=== PATIENT | female | born 1975 | race Caucasian/White ===

== ENCOUNTER 2017-03-03 10:47 | Emergency (ER) | payer BC ==
[2017-03-03] MEDS ORDERED: SODIUM CHLORIDE 0.9% 1,000 ML IV STA (11:20)
--- NOTE | 2017-03-03 11:22 | ED ---
General Adult HPI - General Chief complaint: Abdominal Pain Stated complaint: poss kidney stone, poss bowel obstruction Time Seen by Provider: 03/03/17 11:14 Source: patient, RN notes reviewed Mode of arrival: ambulatory Limitations: no limitations - History of Present Illness Initial comments: Patient 41-year-old female who presents emergency room today with a chief complaint of right-sided flank pain over the last week. She does admit this been following up with family doctor. She states it did x-rays and thought that it could be a kidney stone versus a impaction. She does admit that she tried some laxatives with little relief the symptoms and family doctor sent her here to emergency room for further evaluation. Patient states pain comes and goes located to the right flank. Denies any radiation. States it is cramping and sharp at times currently rates it a 5/10. Denies anything that seems to make it better or worse. Patient denies any recent fever, chills, shortness of breath, chest pain, nausea or vomiting, numbness or tingling, dysuria or hematuria, constipation or diarrhea, headaches or visual changes, or any other complaints. - Related Data Home Medications Medication Instructions Recorded Confirmed Folic Acid 0.8 mg PO DAILY 03/03/17 03/03/17 Allergies Allergy/AdvReac Type Severity Reaction Status Date / Time amoxicillin AdvReac Rash/Hives Verified 03/03/17 11:08 Review of Systems ROS Statement: Those systems with pertinent positive or pertinent negative responses have been documented in the HPI. ROS Other: All systems not noted in ROS Statement are negative. Past Medical History Additional Past Medical History / Comment(s): ischemic colitis History of Any Multi-Drug Resistant Organisms: None Reported Past Surgical History: Tubal Ligation Past Psychological History: No Psychological Hx Reported Smoking Status: Former smoker Past Alcohol Use History: None Reported Past Drug Use History: None Reported General Exam - General Exam Comments Initial Comments: General: The patient is awake and alert, in no distress, and does not appear acutely ill. Eye: Pupils are equal, round and reactive to light, extra-ocular movements are intact. No nystagmus. There is normal conjunctiva bilaterally. No signs of icterus. Ears, nose, mouth and throat: There are moist mucous membranes and no oral lesions. Neck: The neck is supple, there is no tenderness or JVD. Cardiovascular: There is a regular rate and rhythm. No murmur, rub or gallop is appreciated. Respiratory: Lungs are clear to auscultation, respirations are non-labored, breath sounds are equal. No wheezes, stridor, rales, or rhonchi. Gastrointestinal: Normal appearance of the abdomen. Normal bowel sounds. Soft on palpation. Patient has no tenderness in the abdomen. Does have some mild right CVA tenderness. No rebound. No guarding. Musculoskeletal: Normal ROM, no tenderness. Strength 5/5. Sensation intact. Pulses equal bilaterally 2+. Neurological: A&O x 3. CN II-XII intact, There are no obvious motor or sensory deficits. Coordination appears grossly intact. Speech is normal. Skin: Skin is warm and dry and no rashes or lesions are noted. Psychiatric: Cooperative, appropriate mood & affect, normal judgment. Limitations: no limitations Course Vital Signs 03/03/17 10:56 Temperature 98.1 F Pulse Rate 75 Respiratory 20 Rate Blood Pressure 125/85 O2 Sat by Pulse 99 Oximetry Medical Decision Making - Medical Decision Making CT the abdomen and pelvis reviewed and shows 1. Abdomen, all and iliac arterial structures appear normal. 2 minimal facet arthropathy in the lower lumbar spine. No other acute abnormalities are seen. Patient's labs reviewed. Case discussed with attending physician Dr. Haley. At this time patient's resting comfortably. Has not needed any pain medication here in the emergency room. Abdomen soft nontender. Options were discussed about enema here in the emergency room for her bouts of constipation. She is declined. She states she would like to try laxative. Will be given magnesium citrate and discharged home. - Lab Data Result diagrams: 03/03/17 11:50 03/03/17 11:50 Lab Results 03/03/17 03/03/17 03/03/17 Range/Units 11:50 11:50 11:50 WBC 4.1 (3.8-10.6) k/uL RBC 4.13 (3.80-5.40) m/uL Hgb 11.5 (11.4-16.0) gm/dL Hct 34.9 (34.0-46.0) % MCV 84.4 (80.0-100.0) fL MCH 27.9 (25.0-35.0) pg MCHC 33.1 (31.0-37.0) g/dL RDW 14.6 (11.5-15.5) % Plt Count 231 (150-450) k/uL Neutrophils % 51 % Lymphocytes % 32 % Monocytes % 9 % Eosinophils % 4 % Basophils % 1 % Neutrophils # 2.1 (1.3-7.7) k/uL Lymphocytes # 1.3 (1.0-4.8) k/uL Monocytes # 0.4 (0-1.0) k/uL Eosinophils # 0.2 (0-0.7) k/uL Basophils # 0.0 (0-0.2) k/uL Sodium 140 (137-145) mmol/L Potassium 3.9 (3.5-5.1) mmol/L Chloride 106 (98-107) mmol/L Carbon Dioxide 23 (22-30) mmol/L Anion Gap 11 mmol/L BUN 10 (7-17) mg/dL Creatinine 0.73 (0.52-1.04) mg/dL Est GFR (MDRD) Af Amer >60 (>60 ml/min/1.73 sqM) Est GFR (MDRD) Non-Af >60 (>60 ml/min/1.73 sqM) Glucose 89 (74-99) mg/dL Calcium 9.0 (8.4-10.2) mg/dL Total Bilirubin 0.7 (0.2-1.3) mg/dL AST 17 (14-36) U/L ALT 23 (9-52) U/L Alkaline Phosphatase 62 (38-126) U/L Total Protein 7.2 (6.3-8.2) g/dL Albumin 4.2 (3.5-5.0) g/dL Amylase 47 (30-110) U/L Lipase 75 (23-300) U/L Urine Color Urine Appearance (Clear) Urine pH (5.0-8.0) Ur Specific [place] (1.001-1.035) Urine Protein (Negative) Urine Glucose (UA) (Negative) Urine Ketones (Negative) Urine Blood (Negative) Urine Nitrite (Negative) Urine Bilirubin (Negative) Urine Urobilinogen (<2.0) mg/dL Ur Leukocyte Esterase (Negative) Urine RBC (0-5) /hpf Urine WBC (0-5) /hpf Ur Squamous Epith Cells (0-4) /hpf Urine Bacteria (None) /hpf Urine Mucus (None) /hpf Urine HCG, Qual Not Detected (Not Detectd) 03/03/17 Range/Units 11:50 WBC (3.8-10.6) k/uL RBC (3.80-5.40) m/uL Hgb (11.4-16.0) gm/dL Hct (34.0-46.0) % MCV (80.0-100.0) fL MCH (25.0-35.0) pg MCHC (31.0-37.0) g/dL RDW (11.5-15.5) % Plt Count (150-450) k/uL Neutrophils % % Lymphocytes % % Monocytes % % Eosinophils % % Basophils % % Neutrophils # (1.3-7.7) k/uL Lymphocytes # (1.0-4.8) k/uL Monocytes # (0-1.0) k/uL Eosinophils # (0-0.7) k/uL Basophils # (0-0.2) k/uL Sodium (137-145) mmol/L Potassium (3.5-5.1) mmol/L Chloride (98-107) mmol/L Carbon Dioxide (22-30) mmol/L Anion Gap mmol/L BUN (7-17) mg/dL Creatinine (0.52-1.04) mg/dL Est GFR (MDRD) Af Amer (>60 ml/min/1.73 sqM) Est GFR (MDRD) Non-Af (>60 ml/min/1.73 sqM) Glucose (74-99) mg/dL Calcium (8.4-10.2) mg/dL Total Bilirubin (0.2-1.3) mg/dL AST (14-36) U/L ALT (9-52) U/L Alkaline Phosphatase (38-126) U/L Total Protein (6.3-8.2) g/dL Albumin (3.5-5.0) g/dL Amylase (30-110) U/L Lipase (23-300) U/L Urine Color Light Yellow Urine Appearance Cloudy H (Clear) Urine pH 6.5 (5.0-8.0) Ur Specific [place] 1.007 (1.001-1.035) Urine Protein Negative (Negative) Urine Glucose (UA) Negative (Negative) Urine Ketones Negative (Negative) Urine Blood Trace H (Negative) Urine Nitrite Negative (Negative) Urine Bilirubin Negative (Negative) Urine Urobilinogen <2.0 (<2.0) mg/dL Ur Leukocyte Esterase Negative (Negative) Urine RBC 1 (0-5) /hpf Urine WBC 2 (0-5) /hpf Ur Squamous Epith Cells 6 H (0-4) /hpf Urine Bacteria Moderate H (None) /hpf Urine Mucus Few H (None) /hpf Urine HCG, Qual (Not Detectd) Disposition Clinical Impression: Abdominal pain Disposition: HOME SELF-CARE Condition: Good Instructions: Abdominal Pain (ED) Additional Instructions: Please use medication as discussed. Please follow-up with family doctor in the next 2 days of symptoms have not improved. Please return to emergency room if the symptoms increase or worsen or for any other concerns. Referrals: Franky Doran MD [Primary Care Provider] - 1-2 days Time of Disposition: 14:00
[2017-03-03 12:06] LABS: Basophils % (A) 1 %; CH 27.2; CHCM 32.3; Eosinophils # (A) 0.2 k/uL (0-0.7); Eosinophils % (A) 4 %; HCT 34.9 % (34.0-46.0); HDW 2.66; HGB 11.5 gm/dL (11.4-16.0); Luc # (Auto) 0.17; Luc % (Auto) 4; Lymphocytes # (A) 1.3 k/uL (1.0-4.8); Lymphocytes % (A) 32 %; MCH 27.9 pg (25.0-35.0); MCHC 33.1 g/dL (31.0-37.0); MCV 84.4 fL (80.0-100.0); Mean Platelet Volume 7.5; Monocytes # (A) 0.4 k/uL (0-1.0); Monocytes % (A) 9 %; Neutrophils # (A) 2.1 k/uL (1.3-7.7); Neutrophils % (A) 51 %; RBC 4.13 m/uL (3.80-5.40); RDW 14.6 % (11.5-15.5); WBC 4.1 k/uL (3.8-10.6); WBC (Perox) 3.93
[2017-03-03 12:08] LABS: Appearance,Urine Cloudy (Clear); Bacteria,Urine Moderate /hpf; Bilirubin,Urine Negative (Negative); Glucose,Urine (UA) Negative (Negative); Ketones,Urine Negative (Negative); Leukocyte Esterase,Urine Negative (Negative); Mucus,Urine Few /hpf; Nitrite,Urine Negative (Negative); PH, Urine 6.5 (5.0-8.0); Particle Count 10007; Protein,Urine Negative (Negative); RBC,Urine 1 /hpf (0-5); Specific Gravity,Urine 1.007 (1.001-1.035); Squamous Epithelial Cell,Urine 6 /hpf (0-4); UA Billing (MACRO vs. MICRO) MICRO; Urobilinogen,Urine <2.0 mg/dL (<2.0); WBC,Urine 2 /hpf (0-5)
[2017-03-03 12:10] LABS: ALT 23 U/L (9-52); AST 17 U/L (14-36); Alkaline Phosphatase 62 U/L (38-126); Amylase 47 U/L (30-110); Anion Gap 11 mmol/L; Blood Urea Nitrogen 10 mg/dL (7-17); Carbon Dioxide 23 mmol/L (22-30); Chloride 106 mmol/L (98-107); Glucose 89 mg/dL (74-99); Non-African American GFR(MDRD) >60 (>60 ml/min/1.73 sqM); Potassium 3.9 mmol/L (3.5-5.1); Sodium 140 mmol/L (137-145); Total Bilirubin 0.7 mg/dL (0.2-1.3); Total Protein 7.2 g/dL (6.3-8.2)
--- NOTE | 2017-03-03 12:12 | XR ---
EXAMINATION TYPE: XR KUB , 2 VIEWS DATE OF EXAM ORDERED: 03/03/2017 HISTORY: pain. COMPARISON: None. FINDINGS: The abdominal gas pattern is normal. There is no evidence of obstruction or free air. Ther e is a solitary phlebolith in the left hemipelvis. The lung bases appear clear. No definite renal purnima culi are seen. IMPRESSION: NO ACUTE INTRA-ABDOMINAL ABNORMALITY.
[2017-03-03] MEDS ORDERED: RX INFO: IV CONTRAST WAS GIVEN 1 EACH MISC MISCELLANE PRN (12:17)
--- NOTE | 2017-03-03 13:13 | CT ---
EXAMINATION TYPE: CT angio abdomen pelvis DATE OF EXAM: 03/03/2017 REFERENCE: NONE HISTORY: Pain HISTORY: Rt sided pain, history of ischemic colitis REFERENCE: NONE CT DLP: 455.7 mGy Automated exposure control for dose reduction was used. TECHNIQUE: Helical acquisition through the abdomen and pelvis was obtained following the oral ingesti on of without Oral Contrast and following intravenous administration of 100 mL of Omnipaque 350. The data was reformatted in axial, coronal and sagittal projections. FINDINGS: Visualized portions of the lungs are clear. There is no pleural or pericardial fluid. The heart is not enlarged. Within the abdomen, the liver, spleen and gallbladder appear normal. Both adrenal glands appear normal. Both kidneys demonstrate function and appear morphologically richi l. The pancreas is unremarkable. There is no significant retroperitoneal, iliac or inguinal adenopathy. The bladder is unremarkable. The uterus appears normal. The ovaries are not clearly defined. There is no significant diverticular change and there is no radiographic evidence of diverticulitis. The appendix is not visualized. Small bowel loops appear normal. No free fluid and no free air is seen.. The aorta is normal in caliber. There is no significant atheromatous calcification. The celiac, SMA, renal arteries and KYE vessels are patent. Both the common iliac as well as the inte rnal/external iliac arteries are patent. The superficial femoral artery is patent proximally. There is minimal facet arthropathy in the lower lumbar spine. No bony destructive lesion is seen. IMPRESSION: 1. ABDOMINAL AND ILIAC ARTERIAL STRUCTURES APPEAR NORMAL. 2. MINIMAL FACET ARTHROPATHY IN THE LOWER LUMBAR SPINE.
[2017-03-03] MEDS ORDERED: MAGNESIUM CITRATE 296 ML BOTTLE PO ONE (13:41)
[2017-03-03 13:51] VITALS: BP 102/59; PULSE 69; RESP 18; TEMP 97.8
== END 2017-03-03 14:19 | disposition home or self-care (01) ==
LOC: EC 10:47
DX: K59.00 Constipation, unspecified (principal); R10.9 Unspecified abdominal pain; Z87.891 Personal history of nicotine dependence; Z79.899 Other long term (current) drug therapy; Z88.0 Allergy status to penicillin; Z87.19 Personal history of other diseases of the digestive system
CPT/HCPCS: 99284; 96360; 96361; 36415; 80053; 82150; 83605; 83690; 85025; 81001; 81025; 74000; 74174; Q9967

== ENCOUNTER 2017-04-07 07:58 | Day surgery (SDC) | payer BC ==
[2017-04-05 15:19] VITALS: BMI 23.4
[~2017-04-07 07:58] MED LIST: LACTATED RINGERS 1,000 ML IV SCH
[2017-04-07 09:13] VITALS: RESP 16; TEMP 98.1
[2017-04-07] MEDS ORDERED: LIDOCAINE 1% 20 ML VIAL (10MG/ML) FOR IV START INTRADERMA ONE (09:19)
[2017-04-07] MEDS ORDERED: LIDOCAINE 1% INJ 10MG/ML (20 ML MDV) ONE (09:46)
[2017-04-07] MEDS ORDERED: PROPOFOL 10 MG/ML 20 ML VIAL IV ONE (09:46)
--- NOTE | 2017-04-07 10:08 | P.PCN ---
Date of Procedure: 04/07/17 Preoperative Diagnosis: Postoperative Diagnosis: Procedure(s) Performed: BRIEF HISTORY: Patient is a 42-year-old pleasant white female, scheduled for an elective colonoscopy as a part of evaluation of right lower quadrant abdominal pain for the last several months duration. She also has associated constipation and has been on MiraLAX as well as Colace with no significant help. Recently went to the emergency room with severe pain and had a CT of the abdomen and pelvis done that was unremarkable. Lyla episode of ischemic colitis in 2017. The cause of the ongoing symptoms she is scheduled for colonoscopy to evaluate further. PROCEDURE PERFORMED: Colonoscopy. PREOPERATIVE DIAGNOSIS: Right lower quadrant abdominal pain and chronic constipation. IV sedation per Anesthesia. PROCEDURE: After informed consent was obtained, the patient, was brought into the endoscopy unit. IV sedation was administered by Anesthesia under continuous monitoring. Digital rectal examination was normal. Initially the Olympus CF- 160 flexible video colonoscope was then inserted in the rectum, gradually advanced into the cecum without any difficulty. Careful examination was performed as the scope was gradually being withdrawn. Ileocecal valve and the appendiceal orifice were visualized and appeared normal. Terminal ileum appeared normal. Prep was excellent. Mucosa of the cecum, ascending colon, transverse colon, descending colon, sigmoid colon, and rectum appeared normal. Retroflexion was performed in the rectum and no lesions were seen. The patient tolerated the procedure well. IMPRESSION: Normal-appearing colon from rectum to cecum with no evidence of colitis or colorectal neoplasia. RECOMMENDATIONS: Findings of this examination were discussed with the patient as well as a family. She was advised to increase the MiraLAX 1 scoop twice daily and continue with high-fiber diet. She can have a repeat colonoscopy in 10 years. Implants: Indications for Procedure: Operative Findings: Description of Procedure:
[2017-04-07 10:28] VITALS: BP 116/69; PULSE 76
== END 2017-04-07 10:57 | disposition home or self-care (01) ==
LOC: ORWHC2ENDO 07:58
PROVIDERS: ATTEND Internal Medicine Gastroenterology
DX: R10.31 Right lower quadrant pain (principal); K59.00 Constipation, unspecified; Z87.19 Personal history of other diseases of the digestive system; Z87.891 Personal history of nicotine dependence; Z91.09 Other allergy status, other than to drugs and biological substances
CPT/HCPCS: 81025; 45378; J2001; J2704

== ENCOUNTER 2018-10-19 05:47 | Day surgery (SDC) | payer BC ==
[2018-10-16 16:09] VITALS: BMI 25.7
--- NOTE | 2018-10-18 07:08 | P.HPOB ---
History of Present Illness H&P Date: 10/18/18 Chief Complaint: Menorrhagia This patient is a pleasant 43-year-old 4 para 3 female who presented to my office with complaints of menorrhagia requesting treatment. Patient's evaluations included a ultrasound which was normal. Patient I did discuss options for treatment and she has requested an endometrial ablation for this. Patient has had a tubal ligation for control. Review of Systems Genitourinary: Reports as per HPI, Reports menorrhagia Menstruation: Reports period heavy Past Medical History Additional Past Medical History / Comment(s): PAST HX ischemic colitis, History of Any Multi-Drug Resistant Organisms: None Reported Past Surgical History: Tubal Ligation Additional Past Surgical History / Comment(s): COLONOSCOPY Past Anesthesia/Blood Transfusion Reactions: No Reported Reaction Additional Past Anesthesia/Blood Transfusion Reaction / Comment(s): no hx blood transfusion Past Psychological History: No Psychological Hx Reported Smoking Status: Former smoker Past Alcohol Use History: None Reported Past Drug Use History: None Reported - Past Family History Mother Family Medical History: Cancer Additional Family Medical History / Comment(s): breast Medications and Allergies Home Medications Medication Instructions Recorded Confirmed Type No Known Home Medications 04/05/17 10/16/18 History Allergies Allergy/AdvReac Type Severity Reaction Status Date / Time amoxicillin AdvReac Rash/Hives Verified 10/17/18 08:40 Exam - OBG Physical Exam Abdomen: bowel sounds normal, no diffuse tenderness, no bruit present, no guarding noted, no hepatomegaly, no splenomegaly, no mass Vulva: both: normal Vagina: normal moisture, no discharge Cervix: no lesion, no discharge Uterus: normal size, normal contour Results Transvaginal ultrasound on September 26 showed a normal-appearing endometrium and ovaries. Assessment and Plan Assessment: This is a pleasant 43-year-old 4 para 3 female with long-standing menorrhagia requesting NovaSure endometrial ablation for treatment. Plan is hysteroscopy, D&C, NovaSure endometrial ablation. Patient and I have discussed this surgery and risks including risks of infection, bleeding, possible uterine perforation, and/or thermal injury. All the patient's questions have been answered and a written consent is obtained. (1) Menorrhagia Status: Chronic Code(s): N92.0 - EXCESSIVE AND FREQUENT MENSTRUATION WITH REGULAR CYCLE SNOMED Code(s): 753542911
[~2018-10-19 05:47] MED LIST changes: -LACTATED RINGERS 1,000 ML IV SCH; +Pre Op ABX Message 1 EACH MISC MISCELLANE ONE
[2018-10-19] MEDS ORDERED: LIDOCAINE 1% 20 ML VIAL (10MG/ML) FOR IV START INTRADERMA ONE (06:45)
[2018-10-19] MEDS ORDERED: ONDANSETRON 4 MG/2 ML VIAL IVP ONE (06:47)
[2018-10-19] MEDS ORDERED: DEXAMETHASONE SOD PHOSPHATE 10 MG/ML 1 ML VIAL IV ONE (06:48)
[2018-10-19] MEDS ORDERED: fentaNYL (PF) 50 MCG/ML 2 ML AMP ONE (06:55)
[2018-10-19] MEDS ORDERED: KETOROLAC 30 MG/ML 1 ML VIAL ONE (06:55)
[2018-10-19] MEDS ORDERED: MIDAZOLAM 2 MG/2 ML VIAL ONE (06:55)
[2018-10-19] MEDS ORDERED: PROPOFOL 10 MG/ML 20 ML VIAL IV ONE (06:55)
[2018-10-19] MEDS ORDERED: LACTATED RINGERS 1,000 ML IV ONE (06:57)
[2018-10-19 07:45] VITALS: TEMP 980
[2018-10-19] MEDS ORDERED: HYDROmorphone 1 MG/ML 1 ML SYRINGE IVP ONE ×2 (07:48)
--- NOTE | 2018-10-19 08:04 | P.OP ---
Date of Procedure: 10/19/18 Preoperative Diagnosis: Menorrhagia Postoperative Diagnosis: Same Procedure(s) Performed: #1: Hysteroscopy. #2: Dilation and curettage. #3: NovaSure endometrial ablation Anesthesia: MAC Surgeon: Amarjit Simms Estimated Blood Loss (ml): 10 Urine output (ml): 15 Pathology: other (Uterine curettings) Condition: stable Disposition: PACU Indications for Procedure: Please see dictated H&P for intimate details of this patient's admission. Brief summary this pleasant 43-year-old multipara first patient who is admitted for treatment of menorrhagia. Patient requested an endometrial ablation. Patient I have discussed the surgery and risks including risks of infection, bleeding, possible uterine perforation, and/or thermal injury. All the patient' s questions are answered and a written consent is obtained. Operative Findings: This patient had a normal-appearing endometrial cavity with a length of 6 cm and a width of 4.8 cm. There was no evidence of any polyps fibroids or abnormal growths. Description of Procedure: This patient is taken to the operating room where she is laid in the supine position. She subsequent undergoes general mask anesthesia without incident. An adequate level of anesthesia was placed in dorsal lithotomy position. She has a vaginal perineal prep and drape. Examination under anesthesia shows a mid position uterus. A weighted speculum was placed in the posterior vagina. The anterior lip of the cervix was grabbed with an Allis clamp. The uterus is then sounded to approximately 9-1/2 cm. Gentle dilation is then done of the endocervix to allow the hysteroscope into the uterine cavity. Using saline solution hysteroscopy is performed and the uterine cavity is found to be normal in appearance with a length of 6 cm and a width of 4.8 cm. The hysteroscope was removed. Gentle dilation is done to allow a curette easily and the uterine cavity and gentle 4 quadrant curettage is done for adequate sampling. NovaSure device is then opened appears to be intact. It is then seated in place and passes the cavity integrity test. It is then enabled for 72 seconds. Is then removed and hysteroscopy is performed again and the uterine cavity appears to be ablated up to the endocervix. Excellent results were noted. This time the procedure is ended. The Allis clamp and weighted speculum removed. All counts correct 3. There are no complications. Patient's taken recovery room satisfactory condition.
[2018-10-19 08:16] VITALS: RESP 16
[2018-10-19 09:19] VITALS: BP 112/73; PULSE 54
== END 2018-10-19 09:42 | disposition home or self-care (01) ==
LOC: OR 05:47
PROVIDERS: ATTEND Obstetrics & Gynecology
DX: N92.0 Excessive and frequent menstruation with regular cycle (principal); Z88.0 Allergy status to penicillin; Z98.51 Tubal ligation status; Z87.891 Personal history of nicotine dependence
CPT/HCPCS: 81025; 88305; 58563; J2250; J1100; J2405; J3010; J1885; J1170; J2704

== ENCOUNTER → 2019-07-26 | Outpatient (CLI) | payer BC ==
--- NOTE | 2019-07-26 09:11 | MM ---
Reason for exam: screening (asymptomatic). Last mammogram was performed 5 years and 9 months ago. History: Family history of breast cancer in mother at age 51. Physical Findings: A clinical breast exam by your physician is recommended on an annual basis and results should be correlated with mammographic findings. MG Screening Mammo w CAD Bilateral CC and MLO view(s) were taken. Prior study comparison: October 24, 2013, right diagnostic mammogram w/CAD. September 18, 2013, bilateral digital screening mammo w/CAD. There are scattered fibroglandular densities. Focal asymmetry anterior central CC view only. ASSESSMENT: Incomplete: need additional imaging evaluation, BI-RAD 0 RECOMMENDATION: Special view mammogram of the left breast. If lesion persists on supplemental views, image directed ultrasound is recommended. [facility] will attempt to contact patient to return for supplemental views and ultrasound if indicated.
== END | disposition home or self-care (01) ==
LOC: RADMAMWWP 07:56
PROVIDERS: ATTEND Family Medicine
DX: Z12.39 Encounter for other screening for malignant neoplasm of breast (principal)
CPT/HCPCS: 77067

== ENCOUNTER → 2019-08-08 | Outpatient (CLI) | payer BC ==
--- NOTE | 2019-08-08 11:38 | MM ---
Reason for exam: additional evaluation requested from abnormal screening. Last mammogram was performed less than 1 month ago. History: Family history of breast cancer in mother at age 51. Physical Findings: Nurse did not find any significant physical abnormalities on exam. MG 3D Work Up W/Cad LT Spot compression CC and LM view(s) were taken of the left breast. Prior study comparison: July 26, 2019, bilateral MG screening mammo w CAD. October 24, 2013, right diagnostic mammogram w/CAD. There is no discrete abnormality including area of concern. These results were verbally communicated with the patient and result sheet given to the patient on 08/08/19. ASSESSMENT: Negative, BI-RAD 1 RECOMMENDATION: Return to routine screening mammogram schedule for both breasts.
== END | disposition home or self-care (01) ==
LOC: RADMAMWWP 09:59
PROVIDERS: ATTEND Family Medicine
DX: R92.8 Other abnormal and inconclusive findings on diagnostic imaging of breast (principal)
CPT/HCPCS: 77061; 77065

== ENCOUNTER 2021-09-17 14:22 | Emergency (ER) | payer BC ==
[2021-09-17 14:25] VITALS: TEMP 98.7
--- NOTE | 2021-09-17 15:16 | ED ---
Arrhythmia/Palpitations HPI - General Chief Complaint: Arrhythmia/Palpitations Stated Complaint: Heart Palpatations Time Seen by Provider: 09/17/21 14:51 Source: patient Mode of arrival: ambulatory Limitations: no limitations - History of Present Illness Initial Comments: Patient presents with intermittent palpitations. Nothing makes it better or worse. Her symptoms are not related to any type of exertion. She has no associated shortness of breath. She has no chest pain or pressure or tightness. She has no swelling in the arms or legs. She has no paresthesias. She has no weakness. She has no trouble walking. She has no lightheadedness or dizziness. - Related Data Home Medications Medication Instructions Recorded Confirmed No Known Home Medications 09/17/21 09/17/21 Allergies Allergy/AdvReac Type Severity Reaction Status Date / Time amoxicillin AdvReac Rash/Hives Verified 09/17/21 15:35 Review of Systems ROS Statement: Those systems with pertinent positive or pertinent negative responses have been documented in the HPI. ROS Other: All systems not noted in ROS Statement are negative. Past Medical History Past Medical History: No Reported History Additional Past Medical History / Comment(s): PAST HX ischemic colitis, History of Any Multi-Drug Resistant Organisms: None Reported Past Surgical History: Ablation, Tubal Ligation Additional Past Surgical History / Comment(s): COLONOSCOPY Past Anesthesia/Blood Transfusion Reactions: No Reported Reaction Additional Past Anesthesia/Blood Transfusion Reaction / Comment(s): no hx blood transfusion Past Psychological History: No Psychological Hx Reported Smoking Status: Never smoker Past Alcohol Use History: Occasional Past Drug Use History: None Reported - Past Family History Mother Family Medical History: Cancer Additional Family Medical History / Comment(s): breast General Exam Limitations: no limitations General appearance: alert, in no apparent distress Head exam: Present: atraumatic, normocephalic, normal inspection Eye exam: Present: normal appearance, PERRL, EOMI. Absent: scleral icterus, conjunctival injection, periorbital swelling ENT exam: Present: normal exam, mucous membranes moist Neck exam: Present: normal inspection. Absent: tenderness, meningismus, lymphadenopathy Respiratory exam: Present: normal lung sounds bilaterally. Absent: respiratory distress, wheezes, rales, rhonchi, stridor Cardiovascular Exam: Present: regular rate, normal rhythm, normal heart sounds. Absent: systolic murmur, diastolic murmur, rubs, gallop, clicks GI/Abdominal exam: Present: soft, normal bowel sounds. Absent: distended, tenderness, guarding, rebound, rigid Extremities exam: Present: normal inspection, full ROM, normal capillary refill. Absent: tenderness, pedal edema, joint swelling, calf tenderness Back exam: Present: normal inspection Neurological exam: Present: alert, oriented X3, CN II-XII intact Psychiatric exam: Present: normal affect, normal mood Skin exam: Present: warm, dry, intact, normal color. Absent: rash Course Vital Signs 09/17/21 09/17/21 14:23 16:25 Temperature 98.7 F Pulse Rate 71 71 Respiratory 20 18 Rate Blood Pressure 155/94 110/71 O2 Sat by Pulse 99 97 Oximetry EKG Findings - EKG Comments: EKG Findings:: Twelve-lead EKG shows ventricular rate 66 bpm, no ST elevation or depression, normal WA interval and QRS complexes, interpreted by me as normal sinus rhythm. Medical Decision Making - Medical Decision Making Patient presents with palpitations. Her labs are all normal. EKG is normal. Chest x-ray is normal. I find no evidence of any acute emergency. She is stable for discharge. - Lab Data Result diagrams: 09/17/21 15:19 09/17/21 15:19 Lab Results 09/17/21 09/17/21 09/17/21 Range/Units 15:19 15:19 15:19 WBC 5.1 (3.8-10.6) k/uL RBC 4.35 (3.80-5.40) m/uL Hgb 13.7 (11.4-16.0) gm/dL Hct 41.3 (34.0-46.0) % MCV 94.9 (80.0-100.0) fL MCH 31.4 (25.0-35.0) pg MCHC 33.1 (31.0-37.0) g/dL RDW 12.7 (11.5-15.5) % Plt Count 210 (150-450) k/uL MPV 8.1 Neutrophils % 61 % Lymphocytes % 26 % Monocytes % 7 % Eosinophils % 3 % Basophils % 1 % Neutrophils # 3.1 (1.3-7.7) k/uL Lymphocytes # 1.3 (1.0-4.8) k/uL Monocytes # 0.4 (0-1.0) k/uL Eosinophils # 0.1 (0-0.7) k/uL Basophils # 0.0 (0-0.2) k/uL PT 11.9 (9.0-12.0) sec INR 1.1 (<1.2) APTT 23.6 (22.0-30.0) sec D-Dimer 0.32 (<0.60) mg/L FEU Sodium 138 (137-145) mmol/L Potassium 3.9 (3.5-5.1) mmol/L Chloride 104 (98-107) mmol/L Carbon Dioxide 22 (22-30) mmol/L Anion Gap 12 mmol/L BUN 11 (7-17) mg/dL Creatinine 0.70 (0.52-1.04) mg/dL Est GFR (CKD-EPI)AfAm >90 (>60 ml/min/1.73 sqM) Est GFR (CKD-EPI)NonAf >90 (>60 ml/min/1.73 sqM) Glucose 104 H (74-99) mg/dL Calcium 9.5 (8.4-10.2) mg/dL Magnesium 1.9 (1.6-2.3) mg/dL Total Bilirubin 0.5 (0.2-1.3) mg/dL AST 24 (14-36) U/L ALT 14 (4-34) U/L Alkaline Phosphatase 55 (38-126) U/L Troponin I (0.000-0.034) ng/mL Total Protein 7.7 (6.3-8.2) g/dL Albumin 4.4 (3.5-5.0) g/dL 09/17/21 Range/Units 15:19 WBC (3.8-10.6) k/uL RBC (3.80-5.40) m/uL Hgb (11.4-16.0) gm/dL Hct (34.0-46.0) % MCV (80.0-100.0) fL MCH (25.0-35.0) pg MCHC (31.0-37.0) g/dL RDW (11.5-15.5) % Plt Count (150-450) k/uL MPV Neutrophils % % Lymphocytes % % Monocytes % % Eosinophils % % Basophils % % Neutrophils # (1.3-7.7) k/uL Lymphocytes # (1.0-4.8) k/uL Monocytes # (0-1.0) k/uL Eosinophils # (0-0.7) k/uL Basophils # (0-0.2) k/uL PT (9.0-12.0) sec INR (<1.2) APTT (22.0-30.0) sec D-Dimer (<0.60) mg/L FEU Sodium (137-145) mmol/L Potassium (3.5-5.1) mmol/L Chloride (98-107) mmol/L Carbon Dioxide (22-30) mmol/L Anion Gap mmol/L BUN (7-17) mg/dL Creatinine (0.52-1.04) mg/dL Est GFR (CKD-EPI)AfAm (>60 ml/min/1.73 sqM) Est GFR (CKD-EPI)NonAf (>60 ml/min/1.73 sqM) Glucose (74-99) mg/dL Calcium (8.4-10.2) mg/dL Magnesium (1.6-2.3) mg/dL Total Bilirubin (0.2-1.3) mg/dL AST (14-36) U/L ALT (4-34) U/L Alkaline Phosphatase (38-126) U/L Troponin I <0.012 (0.000-0.034) ng/mL Total Protein (6.3-8.2) g/dL Albumin (3.5-5.0) g/dL Disposition Clinical Impression: Palpitations Disposition: HOME SELF-CARE Condition: Good Instructions (If sedation given, give patient instructions): Heart Palpitations (ED) Is patient prescribed a controlled substance at d/c from ED?: No Referrals: Saira De Santiago MD [Primary Care Provider] - 1-2 days Brown Iglesias MD [STAFF PHYSICIAN] - 1-2 days
[2021-09-17 15:40] LABS: ALT 14 U/L (4-34); AST 24 U/L (14-36); African American GFR (CKD) >90 (>60 ml/min/1.73 sqM); Albumin 4.4 g/dL (3.5-5.0); Alkaline Phosphatase 55 U/L (38-126); Anion Gap 12 mmol/L; Blood Urea Nitrogen 11 mg/dL (7-17); Calcium 9.5 mg/dL (8.4-10.2); Carbon Dioxide 22 mmol/L (22-30); Chloride 104 mmol/L (98-107); Glucose 104 mg/dL (74-99); Magnesium 1.9 mg/dL (1.6-2.3); Non-African American GFR(CKD) >90 (>60 ml/min/1.73 sqM); Potassium 3.9 mmol/L (3.5-5.1); Sodium 138 mmol/L (137-145); Total Bilirubin 0.5 mg/dL (0.2-1.3); Total Protein 7.7 g/dL (6.3-8.2)
[2021-09-17 15:57] LABS: Basophils % (A) 1 %; Eosinophils # (A) 0.1 k/uL (0-0.7); Eosinophils % (A) 3 %; HCT 41.3 % (34.0-46.0); HGB 13.7 gm/dL (11.4-16.0); Lymphocytes # (A) 1.3 k/uL (1.0-4.8); Lymphocytes % (A) 26 %; MCH 31.4 pg (25.0-35.0); MCHC 33.1 g/dL (31.0-37.0); MCV 94.9 fL (80.0-100.0); Mean Platelet Volume 8.1; Monocytes # (A) 0.4 k/uL (0-1.0); Monocytes % (A) 7 %; Neutrophils # (A) 3.1 k/uL (1.3-7.7); Neutrophils % (A) 61 %; Platelet Count 210 k/uL (150-450); RBC 4.35 m/uL (3.80-5.40); RDW 12.7 % (11.5-15.5); WBC 5.1 k/uL (3.8-10.6)
--- NOTE | 2021-09-17 15:58 | XR ---
EXAMINATION TYPE: XR chest 1V portable DATE OF EXAM: 09/17/2021 COMPARISON: NONE HISTORY: Palpitations and pain. TECHNIQUE: Single AP portable frontal upright view of the chest is obtained. FINDINGS: There is no focal air space opacity, pleural effusion, or pneumothorax seen. The cardiac silhouette size is within normal limits. The osseous structures are intact. Overlying EKG leads are present. IMPRESSION: No acute process.
[2021-09-17 16:34] VITALS: RESP 18
[2021-09-17 17:10] LABS: INR 1.1 (<1.2); Partial Thromboplastin Time 23.6 sec (22.0-30.0); Prothrombin Time 11.9 sec (9.0-12.0)
[2021-09-17 18:06] VITALS: BP 133/78; PULSE 94
== END 2021-09-17 18:06 | disposition home or self-care (01) ==
LOC: EC 14:22
DX: R00.2 Palpitations (principal); Z72.89 Other problems related to lifestyle
CPT/HCPCS: 36415; 71045; 80053; 83735; 84484; 85025; 85379; 85610; 85730; 93005; 99285

== ENCOUNTER 2021-09-19 22:15 | Emergency (ER) | payer BC ==
[2021-09-19 22:19] VITALS: PULSE 70; TEMP 99.4
--- NOTE | 2021-09-19 22:34 | ED ---
General Adult HPI - General Chief complaint: Chest Pain Stated complaint: Chest Pain Time Seen by Provider: 09/19/21 22:32 Source: patient Mode of arrival: wheelchair Limitations: no limitations - History of Present Illness Initial comments: Patient presents to the ED with multiple complaints. Patient states that she has had heart palpitations for the past couple of weeks, and she states that she was seen in the ED for her heart palpitations 2 days ago. Patient also states that she has had a "burning" pain in her chest and in between her shoulder b lades for the past few days. Patient also states that she has had some pain along her "top jaw" today. Patient states that she has also felt fatigued, and she states "I just do not feel well". Patient states that she is unvaccinated for Covid. Patient denies trauma or injury, fever or chills, headache, focal numbness/weakness/neuro deficit, neck/arm pain, pleuritic pain, cough or cold symptoms, dizziness, syncope, nausea/vomiting/diaphoresis, abdominal pain, dysuria or urinary symptoms, decreased urine output, leg or calf swelling or pain, or any other symptoms or complaints. - Related Data Home Medications Medication Instructions Recorded Confirmed No Known Home Medications 09/17/21 09/19/21 Allergies Allergy/AdvReac Type Severity Reaction Status Date / Time amoxicillin AdvReac Rash/Hives Verified 09/19/21 23:12 Review of Systems ROS Statement: Those systems with pertinent positive or pertinent negative responses have been documented in the HPI. ROS Other: All systems not noted in ROS Statement are negative. Past Medical History Past Medical History: No Reported History Additional Past Medical History / Comment(s): PAST HX ischemic colitis History of Any Multi-Drug Resistant Organisms: None Reported Past Surgical History: Ablation, Tubal Ligation Additional Past Surgical History / Comment(s): COLONOSCOPY Past Anesthesia/Blood Transfusion Reactions: No Reported Reaction Additional Past Anesthesia/Blood Transfusion Reaction / Comment(s): no hx blood transfusion Past Psychological History: No Psychological Hx Reported Smoking Status: Never smoker Past Alcohol Use History: Occasional Past Drug Use History: None Reported - Past Family History Mother Family Medical History: Cancer Additional Family Medical History / Comment(s): breast General Exam Limitations: no limitations General appearance: alert, in no apparent distress Head exam: Present: atraumatic, normocephalic Eye exam: Present: normal appearance, EOMI ENT exam: Present: mucous membranes moist Neck exam: Present: other (Trachea is in midline) Respiratory exam: Present: normal lung sounds bilaterally. Absent: respiratory distress, wheezes, rales, rhonchi, stridor, chest wall tenderness Cardiovascular Exam: Present: regular rate, normal rhythm, normal heart sounds, other (Normal radial pulses bilaterally) GI/Abdominal exam: Present: soft. Absent: distended, tenderness, guarding Extremities exam: Present: other (Negative Homans sign bilaterally). Absent: tenderness, pedal edema, calf tenderness Back exam: Absent: tenderness Neurological exam: Present: alert, oriented X3. Absent: motor sensory deficit Psychiatric exam: Present: normal affect, normal mood Skin exam: Present: warm, dry, intact, normal color Course Vital Signs 09/19/21 22:16 Temperature 99.4 F Pulse Rate 70 Respiratory 20 Rate Blood Pressure 140/82 O2 Sat by Pulse 100 Oximetry - Reevaluation(s) Reevaluation #1: 09/20/21 00:48 Patient denies development of any new symptoms while in the ED. Patient remains alert and breathing comfortably with a normal room air oxygen saturation. Patient and are aware the patient's test results, and patient feels comfortable going home with her at this time. Patient was counseled about palpitations and chest pain, and she was clearly explained return and follow-up instructions. Patient was instructed to have a low threshold for return to the emergency department should her symptoms worsen. Patient states that she has an appointment scheduled to see a stevedore hold on Monday (in 3 days). Patient was also instructed to follow up closely with her primary care provider. Patient feels comfortable with this plan. EKG Findings - EKG Comments: EKG Findings:: Normal sinus rhythm, ventricular rate of 79 bpm, no ectopy, normal MN and QRS intervals, normal QT interval, normal axis, nonspecific T-wave abnormality Medical Decision Making - Medical Decision Making Patient's EKG, labs and chest x-ray are all fairly unremarkable. Patient's troponin and d-dimer are within normal limits. Patient's Covid test is negative. Patient has been in a sinus rhythm on the monitor technician while in the ED. I do not suspect an emergent medical condition at this time. Will discharge patient home with her at this time. Patient has an appointment scheduled to see a stevedore hold in 3 days. - Lab Data Result diagrams: 09/19/21 22:45 09/19/21 22:45 Lab Results 09/19/21 09/19/21 09/19/21 Range/Units 22:45 22:45 22:45 WBC 5.6 (3.8-10.6) k/uL RBC 4.52 (3.80-5.40) m/uL Hgb 14.4 (11.4-16.0) gm/dL Hct 42.4 (34.0-46.0) % MCV 93.8 (80.0-100.0) fL MCH 31.9 (25.0-35.0) pg MCHC 34.0 (31.0-37.0) g/dL RDW 12.0 (11.5-15.5) % Plt Count 232 (150-450) k/uL MPV 8.1 Neutrophils % 41 % Lymphocytes % 41 % Monocytes % 8 % Eosinophils % 6 % Basophils % 1 % Neutrophils # 2.3 (1.3-7.7) k/uL Lymphocytes # 2.3 (1.0-4.8) k/uL Monocytes # 0.5 (0-1.0) k/uL Eosinophils # 0.3 (0-0.7) k/uL Basophils # 0.1 (0-0.2) k/uL PT 11.3 (9.0-12.0) sec INR 1.0 (<1.2) APTT 23.6 (22.0-30.0) sec D-Dimer 0.44 (<0.60) mg/L FEU Sodium 139 (137-145) mmol/L Potassium 3.7 (3.5-5.1) mmol/L Chloride 105 (98-107) mmol/L Carbon Dioxide 24 (22-30) mmol/L Anion Gap 10 mmol/L BUN 13 (7-17) mg/dL Creatinine 0.76 (0.52-1.04) mg/dL Est GFR (CKD-EPI)AfAm >90 (>60 ml/min/1.73 sqM) Est GFR (CKD-EPI)NonAf >90 (>60 ml/min/1.73 sqM) Glucose 113 H (74-99) mg/dL Calcium 9.8 (8.4-10.2) mg/dL Magnesium 2.0 (1.6-2.3) mg/dL Total Bilirubin 0.3 (0.2-1.3) mg/dL AST 21 (14-36) U/L ALT 16 (4-34) U/L Alkaline Phosphatase 63 (38-126) U/L Troponin I (0.000-0.034) ng/mL NT-Pro-B Natriuret Pep pg/mL Total Protein 8.0 (6.3-8.2) g/dL Albumin 4.6 (3.5-5.0) g/dL Coronavirus (PCR) (Not Detectd) 09/19/21 09/19/21 09/19/21 Range/Units 22:45 22:45 23:45 WBC (3.8-10.6) k/uL RBC (3.80-5.40) m/uL Hgb (11.4-16.0) gm/dL Hct (34.0-46.0) % MCV (80.0-100.0) fL MCH (25.0-35.0) pg MCHC (31.0-37.0) g/dL RDW (11.5-15.5) % Plt Count (150-450) k/uL MPV Neutrophils % % Lymphocytes % % Monocytes % % Eosinophils % % Basophils % % Neutrophils # (1.3-7.7) k/uL Lymphocytes # (1.0-4.8) k/uL Monocytes # (0-1.0) k/uL Eosinophils # (0-0.7) k/uL Basophils # (0-0.2) k/uL PT (9.0-12.0) sec INR (<1.2) APTT (22.0-30.0) sec D-Dimer (<0.60) mg/L FEU Sodium (137-145) mmol/L Potassium (3.5-5.1) mmol/L Chloride (98-107) mmol/L Carbon Dioxide (22-30) mmol/L Anion Gap mmol/L BUN (7-17) mg/dL Creatinine (0.52-1.04) mg/dL Est GFR (CKD-EPI)AfAm (>60 ml/min/1.73 sqM) Est GFR (CKD-EPI)NonAf (>60 ml/min/1.73 sqM) Glucose (74-99) mg/dL Calcium (8.4-10.2) mg/dL Magnesium (1.6-2.3) mg/dL Total Bilirubin (0.2-1.3) mg/dL AST (14-36) U/L ALT (4-34) U/L Alkaline Phosphatase (38-126) U/L Troponin I <0.012 (0.000-0.034) ng/mL NT-Pro-B Natriuret Pep 39 pg/mL Total Protein (6.3-8.2) g/dL Albumin (3.5-5.0) g/dL Coronavirus (PCR) Not Detected (Not Detectd) - Radiology Data Chest x-ray: Normal chest. No change. Disposition Clinical Impression: Chest pain, Palpitations Disposition: HOME SELF-CARE Condition: Stable Is patient prescribed a controlled substance at d/c from ED?: No Referrals: Saira De Santiago MD [Primary Care Provider] - 1-2 days Time of Disposition: 00:50
--- NOTE | 2021-09-19 22:56 | XR ---
EXAMINATION TYPE: XR chest 2V DATE OF EXAM: 09/19/2021 COMPARISON: 09/17/2021 HISTORY: Dysrhythmia. Chest pain TECHNIQUE: FINDINGS: Heart and mediastinum are normal. Lungs are clear. Diaphragm is normal. Bony thorax appears normal. IMPRESSION: Normal chest. No change.
[2021-09-19 23:07] LABS: Basophils # (A) 0.1 k/uL (0-0.2); Basophils % (A) 1 %; Eosinophils # (A) 0.3 k/uL (0-0.7); Eosinophils % (A) 6 %; HCT 42.4 % (34.0-46.0); HGB 14.4 gm/dL (11.4-16.0); Lymphocytes # (A) 2.3 k/uL (1.0-4.8); Lymphocytes % (A) 41 %; MCH 31.9 pg (25.0-35.0); MCV 93.8 fL (80.0-100.0); Mean Platelet Volume 8.1; Monocytes # (A) 0.5 k/uL (0-1.0); Monocytes % (A) 8 %; Neutrophils # (A) 2.3 k/uL (1.3-7.7); Neutrophils % (A) 41 %; Platelet Count 232 k/uL (150-450); RBC 4.52 m/uL (3.80-5.40); WBC 5.6 k/uL (3.8-10.6)
[2021-09-19 23:15] LABS: Partial Thromboplastin Time 23.6 sec (22.0-30.0); Prothrombin Time 11.3 sec (9.0-12.0)
[2021-09-19 23:17] LABS: ALT 16 U/L (4-34); AST 21 U/L (14-36); African American GFR (CKD) >90 (>60 ml/min/1.73 sqM); Albumin 4.6 g/dL (3.5-5.0); Alkaline Phosphatase 63 U/L (38-126); Anion Gap 10 mmol/L; Blood Urea Nitrogen 13 mg/dL (7-17); Calcium 9.8 mg/dL (8.4-10.2); Carbon Dioxide 24 mmol/L (22-30); Chloride 105 mmol/L (98-107); Glucose 113 mg/dL (74-99); Non-African American GFR(CKD) >90 (>60 ml/min/1.73 sqM); Potassium 3.7 mmol/L (3.5-5.1); Sodium 139 mmol/L (137-145); Total Bilirubin 0.3 mg/dL (0.2-1.3)
[2021-09-20 00:59] VITALS: BP 132/84; RESP 18
== END 2021-09-20 01:00 | disposition home or self-care (01) ==
LOC: EC 22:15
DX: R07.9 Chest pain, unspecified (principal); R00.2 Palpitations; Z20.822 Contact with and (suspected) exposure to COVID-19; Z88.0 Allergy status to penicillin
CPT/HCPCS: 36415; 71046; 80053; 83735; 83880; 84484; 85025; 85379; 85610; 85730; 87635; 93005; 99285

== ENCOUNTER → 2022-07-25 | Outpatient (CLI) | payer BC ==
--- NOTE | 2022-07-26 19:09 | MM ---
Reason for Exam: Screening (asymptomatic). Last mammogram was performed 3 year(s) and 0 month(s) ago. Patient History: Menarche at age 13. First Full-Term at age 24. Patient has history of breast feeding. Mother had breast cancer, age 51. Last menstrual period: 07/11/2022 Risk Values: Laura 5 year model risk: 1.6%. NCI Lifetime model risk: 15.9%. Prior Study Comparison: 10/24/2013 Right Diagnostic Mammogram, [facility]. 07/26/2019 Bilateral Screening Mammogram, [facility]. 08/08/2019 Left Diagnostic Mammogram, [facility]. Tissue Density: There are scattered fibroglandular densities. Findings: Analyzed By CAD. There is stable. No suspicious groups of microcalcifications, spiculated or lobular masses, architectural distortion or other secondary signs of malignancy are mammographically apparent. Overall Assessment: Benign, BI-RAD 2 Management: Screening Mammogram of both breasts in 1 year. A negative mammogram report should not preclude additional follow up of suspicious palpable abnormalities. Patient should continue monthly self breast exam. A clinical breast exam by your physician is recommended on an annual basis and results should be correlated with mammographic findings. Electronically signed and approved by: Zack Torres D.O. Radiologis
== END | disposition home or self-care (01) ==
LOC: RADMAMWWP 15:47
PROVIDERS: ATTEND Obstetrics & Gynecology
DX: Z12.31 Encounter for screening mammogram for malignant neoplasm of breast (principal); Z80.3 Family history of malignant neoplasm of breast
CPT/HCPCS: 77063; 77067

== ENCOUNTER 2023-07-14 00:46 | Observation (INO) | payer BC ==
[2023-07-14 00:50] LABS: Glucose,Whole Blood 109 mg/dL (70-110)
[2023-07-14] MEDS ORDERED: SODIUM CHLORIDE 0.9% 1,000 ML IV STA (01:07)
[2023-07-14] MEDS ORDERED: MECLIZINE 12.5 MG TAB PO STA (01:09)
[2023-07-14 01:17] VITALS: TEMP 98.2
[2023-07-14 01:29] LABS: Basophils % (A) 1 %; Eosinophils # (A) 0.2 k/uL (0-0.7); Eosinophils % (A) 3 %; HCT 37.1 % (34.0-46.0); HGB 12.8 gm/dL (11.4-16.0); Lymphocytes # (A) 2.6 k/uL (1.0-4.8); Lymphocytes % (A) 38 %; MCH 31.6 pg (25.0-35.0); MCHC 34.4 g/dL (31.0-37.0); MCV 91.9 fL (80.0-100.0); Mean Platelet Volume 8.1; Monocytes # (A) 0.4 k/uL (0-1.0); Monocytes % (A) 6 %; Neutrophils # (A) 3.4 k/uL (1.3-7.7); Neutrophils % (A) 50 %; Platelet Count 207 k/uL (150-450); RBC 4.04 m/uL (3.80-5.40); RDW 12.2 % (11.5-15.5); WBC 6.8 k/uL (3.8-10.6)
[2023-07-14 01:38] LABS: ALT 19 U/L (4-34); AST 21 U/L (14-36); African American GFR (CKD) >90 (>60 ml/min/1.73 sqM); Albumin 4.2 g/dL (3.5-5.0); Alkaline Phosphatase 56 U/L (38-126); Anion Gap 14 mmol/L; Blood Urea Nitrogen 13 mg/dL (7-17); Calcium 9.2 mg/dL (8.4-10.2); Carbon Dioxide 21 mmol/L (22-30); Chloride 107 mmol/L (98-107); Glucose 111 mg/dL (74-99); Magnesium 1.9 mg/dL (1.6-2.3); Non-African American GFR(CKD) >90 (>60 ml/min/1.73 sqM); Potassium 3.6 mmol/L (3.5-5.1); Sodium 142 mmol/L (137-145); Total Bilirubin 0.2 mg/dL (0.2-1.3); Total Protein 7.1 g/dL (6.3-8.2)
[2023-07-14] MEDS ORDERED: ONDANSETRON 4 MG/2 ML VIAL IVP STA (02:12)
--- NOTE | 2023-07-14 02:14 | ED ---
General Adult HPI - General Chief complaint: Syncope Stated complaint: Syncope Time Seen by Provider: 07/14/23 00:55 Source: EMS Mode of arrival: EMS Limitations: no limitations - History of Present Illness Initial comments: 48-year-old previously healthy female presents the emergency department after she had a syncopal episode. She states that she was using the restroom before going to bed. She said on the toilet and was attempting to urinate when she ended up passing out. She fell forward and hit the right side of her shoulder on the ground. She denies hitting her head. This was heard by her significant other. Patient was feeling extremely lightheaded before the incident happened. Currently she denies any headaches. No neck or back pain. Denies chest pain or shortness of breath. Does admit to some vertiginous symptoms. Admits nausea without vomiting. Denies any unilateral numbness or weakness. EMS transported the patient to the hospital and offered Zofran however the patient refused. She denies previous history of cardiac disease. She did have one syncopal episode last week while exercising but did not seek care. No shortness of breath. No other alleviating, precipitating or modifying factors - Related Data Home Medications Medication Instructions Recorded Confirmed No Known Home Medications 09/17/21 09/19/21 Allergies Allergy/AdvReac Type Severity Reaction Status Date / Time amoxicillin AdvReac Rash/Hives Verified 07/14/23 00:51 Review of Systems ROS Statement: Those systems with pertinent positive or pertinent negative responses have been documented in the HPI. ROS Other: All systems not noted in ROS Statement are negative. Past Medical History Past Medical History: No Reported History Additional Past Medical History / Comment(s): PAST HX ischemic colitis History of Any Multi-Drug Resistant Organisms: None Reported Past Surgical History: Ablation, Tubal Ligation Additional Past Surgical History / Comment(s): COLONOSCOPY Past Anesthesia/Blood Transfusion Reactions: No Reported Reaction Additional Past Anesthesia/Blood Transfusion Reaction / Comment(s): no hx blood transfusion Past Psychological History: No Psychological Hx Reported Smoking Status: Never smoker Past Alcohol Use History: Occasional Past Drug Use History: None Reported - Past Family History Mother Family Medical History: Cancer Additional Family Medical History / Comment(s): breast General Exam Limitations: no limitations General appearance: alert, in no apparent distress Head exam: Present: atraumatic, normocephalic, normal inspection Eye exam: Present: PERRL, EOMI, nystagmus. Absent: scleral icterus, conjunctival injection, periorbital swelling ENT exam: Present: normal exam, mucous membranes moist Neck exam: Present: normal inspection. Absent: tenderness, meningismus, lymphadenopathy Respiratory exam: Present: normal lung sounds bilaterally. Absent: respiratory distress, wheezes, rales, rhonchi, stridor Cardiovascular Exam: Present: regular rate, normal rhythm, normal heart sounds. Absent: systolic murmur, diastolic murmur, rubs, gallop, clicks GI/Abdominal exam: Present: soft, normal bowel sounds. Absent: distended, tenderness, guarding, rebound, rigid Extremities exam: Present: normal inspection, full ROM, normal capillary refill. Absent: tenderness, pedal edema, joint swelling, calf tenderness Back exam: Present: normal inspection Neurological exam: Present: alert, oriented X3, CN II-XII intact Psychiatric exam: Present: normal affect, normal mood Skin exam: Present: warm, dry, intact, normal color. Absent: rash Course Vital Signs 07/14/23 07/14/23 07/14/23 00:49 01:25 01:55 Temperature 98.2 F Pulse Rate 78 77 Pulse Rate [ 70 Sitting] Pulse Rate [ 87 Standing] Pulse Rate [ 69 Supine] Respiratory 18 18 Rate Blood Pressure 122/85 118/80 Blood Pressure 108/90 [Right Arm Sitting] Blood Pressure 118/80 [Right Arm Standing] Blood Pressure 114/76 [Right Arm Supine] O2 Sat by Pulse 100 97 Oximetry 07/14/23 07/14/23 04:59 06:20 Temperature Pulse Rate 77 85 Pulse Rate [ Sitting] Pulse Rate [ Standing] Pulse Rate [ Supine] Respiratory 16 14 Rate Blood Pressure 100/65 92/61 Blood Pressure [Right Arm Sitting] Blood Pressure [Right Arm Standing] Blood Pressure [Right Arm Supine] O2 Sat by Pulse 98 99 Oximetry Medical Decision Making - Medical Decision Making Was pt. sent in by a medical professional or institution (Dr. PA, POWER BARKER OPERATOR, urgent care, hospital, or senior living...) When possible be specific @ -No Did you speak to anyone other than the patient for history (EMS, parent, family, police, friend...)? What history was obtained from this source @ -Spoke with EMS Did you review nursing and triage notes (agree or disagree)? Why? @ -I reviewed and agree with nursing and triage notes Were old charts reviewed (outside hosp., previous admission, EMS record, old EKG, old radiological studies, urgent care reports/EKG's, senior living records)? Report findings @ -No old charts were reviewed Differential Diagnosis (chest pain, altered mental status, abdominal pain women, abdominal pain men, vaginal bleeding, weakness, fever, dyspnea, syncope, headache, dizziness, GI bleed, back pain, seizure, CVA, palpatations, mental health, musculoskeletal)? @ -Differential Syncope: Valvular disease, hypertrophic cardiomyopathy, pulmonary embolism, tamponade, tachycardia, bradycardia, NE, hypovolemia, hemorrhage, dissection, anemia, intracranial hemorrhage, seizure, hypoglycemia, carbon monoxide poisoning, this is not meant to be an all-inclusive list. EKG interpreted by me (3pts min.). @ -Yes and demonstrates sinus rhythm with a rate of 67. DC interval 173. QRS 90. QTC of 429. No acute ST segment elevations or depressions. Low voltage X-rays interpreted by me (1pt min.). @ -Yes and demonstrates no acute process CT interpreted by me (1pt min.). @ -None done U/S interpreted by me (1pt. min.). @ -None done What testing was considered but not performed or refused? (CT, X-rays, U/S, labs)? Why? @ -None What meds were considered but not given or refused? Why? @ -None Did you discuss the management of the patient with other professionals (professionals i.e. , PA, POWER BARKER OPERATOR, lab, RT, psych nurse, social research assistant, fleshing machine operator, teacher, navy airspace officer, employment case manager)? Give summary @ -Spoke with Dr. greer who will admit the patient because of her recurrent syncope Was smoking cessation discussed for >3mins.? @ -No Was critical care preformed (if so, how long)? @ -No Were there social determinants of health that impacted care today? How? (Homelessness, low income, unemployed, alcoholism, drug addiction, transportation, low edu. Level, literacy, decrease access to med. care, long term, rehab)? @ -No Was there de-escalation of care discussed even if they declined (Discuss DNR or withdrawal of care, Hospice)? DNR status @ -No What co-morbidities impacted this encounter? (DM, HTN, Smoking, COPD, CAD, Cancer, CVA, ARF, Chemo, Hep., AIDS, mental health diagnosis, sleep apnea, morbid obesity)? @ -None Was patient admitted / discharged? Hospital course, mention meds given and rou te, prescriptions, significant lab abnormalities, going to OR and other pertinent info. @ -Admitted. Upon arrival patient was placed in a trauma 2. Thorough history and physical exam was performed. She is placed on continuous pulse ox and cardiac monitoring. 12-lead EKG is obtained. Laboratory studies are conducted. Patient remained on cardiac monitoring. Chest x-ray was performed. Upon return the results they're discussed the patient. She did receive meclizine for her dizziness as well as Zofran for her nausea. She reports improvement in her symptoms. Was agreeable to observation due to her recurrent syncope. Spoke with Dr. Greer who admitted the patient. Undiagnosed new problem with uncertain prognosis? @ -yes Drug Therapy requiring intensive monitoring for toxicity (Heparin, Nitro, Insulin, Cardizem)? @ -No Were any procedures done? @ -No Diagnosis/symptom? @ -Acute syncope 2, fall, blunt right shoulder injury Acute, or Chronic, or Acute on Chronic? @ -Acute Uncomplicated (without systemic symptoms) or Complicated (systemic symptoms)? @ -Complicated Side effects of treatment? @ -No Exacerbation, Progression, or Severe Exacerbation? @ -No Poses a threat to life or bodily function? How? (Chest pain, USA, NE, pneumonia, PE, COPD, DKA, ARF, appy, cholecystitis, CVA, Diverticulitis, Homicidal, Suicidal, threat to staff... and all critical care pts) @ -No - Lab Data Result diagrams: 07/14/23 01:22 07/14/23 01:17 Lab Results 07/14/23 07/14/23 07/14/23 Range/Units 00:48 01:17 01:17 WBC (3.8-10.6) k/uL RBC (3.80-5.40) m/uL Hgb (11.4-16.0) gm/dL Hct (34.0-46.0) % MCV (80.0-100.0) fL MCH (25.0-35.0) pg MCHC (31.0-37.0) g/dL RDW (11.5-15.5) % Plt Count (150-450) k/uL MPV Neutrophils % % Lymphocytes % % Monocytes % % Eosinophils % % Basophils % % Neutrophils # (1.3-7.7) k/uL Lymphocytes # (1.0-4.8) k/uL Monocytes # (0-1.0) k/uL Eosinophils # (0-0.7) k/uL Basophils # (0-0.2) k/uL PT 11.0 (10.0-12.5) sec INR 1.0 (<1.2) APTT 20.2 L (22.0-30.0) sec Sodium 142 (137-145) mmol/L Potassium 3.6 (3.5-5.1) mmol/L Chloride 107 (98-107) mmol/L Carbon Dioxide 21 L (22-30) mmol/L Anion Gap 14 mmol/L BUN 13 (7-17) mg/dL Creatinine 0.77 (0.52-1.04) mg/dL Est GFR (CKD-EPI)AfAm >90 (>60 ml/min/1.73 sqM) Est GFR (CKD-EPI)NonAf >90 (>60 ml/min/1.73 sqM) Glucose 111 H (74-99) mg/dL POC Glucose (mg/dL) 109 (70-110) mg/dL POC Glu Revenue Stamp Clerk ID [place]esh [place] Calcium 9.2 (8.4-10.2) mg/dL Magnesium 1.9 (1.6-2.3) mg/dL Total Bilirubin 0.2 (0.2-1.3) mg/dL AST 21 (14-36) U/L ALT 19 (4-34) U/L Alkaline Phosphatase 56 (38-126) U/L Troponin I (0.000-0.034) ng/mL Total Protein 7.1 (6.3-8.2) g/dL Albumin 4.2 (3.5-5.0) g/dL 07/14/23 07/14/23 Range/Units 01:17 01:22 WBC 6.8 (3.8-10.6) k/uL RBC 4.04 (3.80-5.40) m/uL Hgb 12.8 (11.4-16.0) gm/dL Hct 37.1 (34.0-46.0) % MCV 91.9 (80.0-100.0) fL MCH 31.6 (25.0-35.0) pg MCHC 34.4 (31.0-37.0) g/dL RDW 12.2 (11.5-15.5) % Plt Count 207 (150-450) k/uL MPV 8.1 Neutrophils % 50 % Lymphocytes % 38 % Monocytes % 6 % Eosinophils % 3 % Basophils % 1 % Neutrophils # 3.4 (1.3-7.7) k/uL Lymphocytes # 2.6 (1.0-4.8) k/uL Monocytes # 0.4 (0-1.0) k/uL Eosinophils # 0.2 (0-0.7) k/uL Basophils # 0.0 (0-0.2) k/uL PT (10.0-12.5) sec INR (<1.2) APTT (22.0-30.0) sec Sodium (137-145) mmol/L Potassium (3.5-5.1) mmol/L Chloride (98-107) mmol/L Carbon Dioxide (22-30) mmol/L Anion Gap mmol/L BUN (7-17) mg/dL Creatinine (0.52-1.04) mg/dL Est GFR (CKD-EPI)AfAm (>60 ml/min/1.73 sqM) Est GFR (CKD-EPI)NonAf (>60 ml/min/1.73 sqM) Glucose (74-99) mg/dL POC Glucose (mg/dL) (70-110) mg/dL POC Glu Revenue Stamp Clerk ID Calcium (8.4-10.2) mg/dL Magnesium (1.6-2.3) mg/dL Total Bilirubin (0.2-1.3) mg/dL AST (14-36) U/L ALT (4-34) U/L Alkaline Phosphatase (38-126) U/L Troponin I <0.012 (0.000-0.034) ng/mL Total Protein (6.3-8.2) g/dL Albumin (3.5-5.0) g/dL Disposition Clinical Impression: Syncope Disposition: ADMITTED IP TO THIS HOSP Condition: Stable Is patient prescribed a controlled substance at d/c from ED?: No Time of Disposition: 04:18 Decision to Admit Reason: Admit from EC Decision Date: 07/14/23 Decision Time: 04:19
[2023-07-14 02:15] LABS: Partial Thromboplastin Time 20.2 sec (22.0-30.0)
[2023-07-14] MEDS ORDERED: NALOXONE 0.4 MG/ML 1 ML VIAL IV PRN (04:19)
[2023-07-14] MEDS ORDERED: SODIUM CHLORIDE 0.9% 1,000 ML IV SCH (04:30)
--- NOTE | 2023-07-14 06:54 | XR ---
EXAM: XR Chest, 2 Views CLINICAL HISTORY: syncope TECHNIQUE: Frontal and lateral views of the chest. COMPARISON: September 17, 2021 FINDINGS: Lungs: Unremarkable. No infiltration, atelectasis or mass density. Pleural space: Unremarkable. No pneumothorax. No pleural fluid. Heart: Unremarkable. No cardiomegaly. Mediastinum: Unremarkable. Normal mediastinal contour. Bones/joints: Unremarkable. No acute abnormalities. IMPRESSION: Negative chest x-rays.
[2023-07-14 08:43] VITALS: RESP 18
[2023-07-14 11:22] VITALS: BP 100/63; PULSE 69
--- NOTE | 2023-07-14 11:28 | CA ---
Transthoracic Echo Report Name: Julianne Britton Age: 48 Gender: F : 1975 Exam Date: 07/14/2023 09:26 Exam Location: [facility] Ht (in): 61 Wt (lb): 150 Ordering Physician: Adriana Rowan DO Attending/Referring Phys: [id number], Harpal Radio Tower Technician Rebecca Blackwood [facility] Procedure CPT: Indications: syncope x2 Cardiac Hx: Technical Quality: Fair Contrast 1: Total Dose (mL): Contrast 2: Total Dose (mL): MEASUREMENTS (Male / Female) Normal Values 2D ECHO LV Diastolic Diameter PLAX 4.2 cm 4.2 - 5.9 / 3.9 - 5.3 cm LV Systolic Diameter PLAX 2.7 cm IVS Diastolic Thickness 0.6 cm 0.6 - 1.0 / 0.6 - 0.9 cm LVPW Diastolic Thickness 0.6 cm 0.6 - 1.0 / 0.6 - 0.9 cm LV Relative Wall Thickness 0.3 LVOT Diameter 2.0 cm Ascending Aorta Diameter 2.6 cm M-MODE Aortic Root Diameter MM 2.3 cm LA Systolic Diameter MM 3.9 cm LA Ao Ratio MM 1.7 AV Cusp Separation MM 1.9 cm DOPPLER AV Peak Velocity 126.7 cm/s AV Peak Gradient 6.4 mmHg AV Mean Velocity 88.8 cm/s AV Mean Gradient 3.6 mmHg AV Velocity Time Integral 27.5 cm LVOT Peak Velocity 111.4 cm/s LVOT Peak Gradient 5.0 mmHg LVOT Velocity Time Integral 22.2 cm LVOT Stroke Volume 66.5 cm??? LVOT Stroke Volume Index 39.8 ml/m??? LVOT Cardiac Index 2800.8 cm???/min???m??? AV Area Cont Eq vti 2.4 cm??? AV Area Cont Eq pk 2.6 cm??? Mitral E Point Velocity 81.1 cm/s Mitral A Point Velocity 62.9 cm/s Mitral E to A Ratio 1.3 MV Deceleration Time 201.2 ms LV E' Lateral Velocity 13.7 cm/s Mitral E to LV E' Lateral Ratio 5.9 LV E' Septal Velocity 11.9 cm/s Mitral E to LV E' Septal Ratio 6.8 TR Peak Velocity 207.9 cm/s TR Peak Gradient 17.3 mmHg Right Atrial Pressure 3.0 mmHg Pulmonary Artery Systolic Pressu 20.3 mmHg Right Ventricular Systolic Press 20.3 mmHg FINDINGS Left Ventricle Normal Left ventricular size, wall thickness, systolic function with no obvious regional wall motion abnormalities. Left ventricular ejection fraction is estimated at 60-65%. Right Ventricle Mild right ventricular dilatation. Right Atrium Normal right atrial size. Left Atrium Normal left atrial size. Mitral Valve Structurally normal mitral valve. No mitral regurgitation. Aortic Valve Trileaflet aortic valve. No aortic valve stenosis or regurgitation. Tricuspid Valve Structurally normal tricuspid valve. Trace tricuspid regurgitation. Pulmonic Valve Structurally normal pulmonic valve. Trace pulmonic regurgitation. Pericardium No pericardial effusion Aorta Normal size aortic root and proximal ascending aorta. CONCLUSIONS Normal LV size and systolic function. No significant abnormality on the Doppler exam. No pericardial effusion. No significant pulmonary hypertension Previewed by: Dr. Lisa Gutierrez MD (Electronically Signed) Final Date: 14 July 2023 11:27
[2023-07-14] MEDS ORDERED: ENOXAPARIN 40 MG/0.4 ML SYRINGE SQ SCH (11:30)
--- NOTE | 2023-07-14 12:40 | CONS ---
CONSULTATION HISTORY OF PRESENT ILLNESS: This is a 48-year-old relatively healthy lady who had an episode of what seems to be a vasovagal syncope. Apparently, she fell asleep after having some 3 drinks around 5:30 and she fell asleep around 9 o'clock, woke up at 11:00 and was going to the restroom, felt a little queasy in her stomach and then she was on the toilet attempting to urinate and then she passed out. She hit the right side of the shoulder, but no significant injury. She did not lose control of bladder or bowel. The whole clinical scenario suggests vasovagal syncope. Following the procedure, she felt that she had a little tunnel vision, unable to focus for a while. Then, she had some tingling on her face. About a week ago, she had a similar but much less intense episode that occurred when she was doing yoga at the end of finishing her yoga exercise. At the time of my evaluation, she was asymptomatic, resting comfortably. She does not take any regular medications. She has no other significant past medical history. Apparently, she saw Dr. Nichole in the office in October of 2021 and she had an echo, stress test, and a 24- hour Holter all of which were normal. She actually walked for over 10 minutes without any arrhythmia or angina. Her echo revealed good systolic function. PHYSICAL EXAMINATION: VITAL SIGNS: Blood pressure is 118/70, pulse rate is 70. No orthostatic changes. HEENT: Unremarkable. Fundus was not examined by me. NECK: Supple. No JVD. I do not hear a carotid bruit. There is no thyromegaly. HEART: Reveals S1 and S2 heard normally. No rub, murmur or gallop. LUNGS: Clear. ABDOMEN: Soft, nontender. EXTREMITIES: Lower extremities reveal normal pulses. No edema. CENTRAL NERVOUS SYSTEM: Normal. IMAGING: EKG revealed sinus mechanism with nonspecific T-wave abnormality. Clinical axis review does not suggest any arrhythmia. FINAL IMPRESSION: 1. Possible vasovagal syncope. 2. Rule out any associated neurological issues. Apparently, she had a similar episode before as well. RECOMMENDATIONS: I am recommending that we will monitor her for 24 hours, perform echocardiogram, seek a Neurology evaluation and a 2-week event monitor following which she will see Dr. Nichole in the office. Thank you very much for the consult. MMODL / IJN: [id number] /
--- NOTE | 2023-07-14 16:59 | P.HPIM ---
History of Present Illness H&P Date: 07/14/23 Chief Complaint: Past out This is a pleasant 48-year-old patient who follows with Dr.S. De Santiago. Patient normally in good health. Yesterday patient and her had gone out for dinner. Glaucoma around 8:00. At about 9 PM she was watching the football game and on the couch. Went to sleep. Woke up around 11:30 PM and went to the restroom. She felt fuzzy in the head perspiring and then patient passed out. had a fall came to the bathroom. She was on the floor. She was pale and perspiring heavily. She was slowly wake up but Dozing off for last about 5 minutes. Also some shortness of breath. No tongue biting. He landed according the EMS. EMS recorded a blood pressure 1 27 x 56, a pulse of 82, respiration of 20 and a pulse ox of 96%. EKG showed sinus rhythm. Patient does not remember that episode except when the EMS came. Patient denies any prior head injury. No prior history of seizure activity. Denies any use a mask excessive alcohol intake or any recreational drugs. About a week ago patient was doing yoga and she was bending forward with a body ER should the ear she got up she felt very dizzy lightheaded. Had to hold onto something. Otherwise patient rather active. Patient's at the bedside to help with a history in the ER. Review of systems: GEN.: Tired EYES: None HEENT: None NECK: None RESPIRATORY: None CARDIOVASCULAR: None GASTROINTESTINAL: None GENITOURINARY: None MUSCULOSKELETAL: None LYMPHATICS: None HEMATOLOGICAL: None PSYCHIATRY: None NEUROLOGICAL: None Past medical history to include: Ischemic colitis. Social history: smoked for about 9 years stopped at age of 23.-half a pack a day. Alcohol socially. Lives with her . Physical examination: VITAL SIGNS: 98.2, 78, 18, 122/85, 100% room air. No orthostatic GENERAL: BMI 28.3, sitting up comfortable. EYES: Pupils equal. Conjunctiva normal. HEENT: External appearance of nose and ears normal, oral cavity grossly normal. NECK: JVD not raised; masses not palpable. HEART: First and second heart sounds are normal; no edema. LUNGS: Respiratory rate normal; clear to auscultation. ABDOMEN: Soft, nontender, liver spleen not palpable, no masses palpable. PSYCH: Alert and oriented x3; mood and affect normal. MUSCULOSKELETAL:No Clubbing/cyanosis;muscles-grossly intact NEUROLOGICAL: Cranial nerves grossly intact; no facial asymmetry, power and sensation grossly intact. LYMPHATICS: No lymph nodes palpable in the axilla and neck INVESTIGATIONS, reviewed in the clinical context: July 14: White count 6.8 hemoglobin 12.8 platelets 207 sodium 142 potassium 3.6 creatinine 0.77 Troponin I less than 0.012 D-dimer 0.27 EKG tracing personally reviewed by me-normal sinus rhythm. Nonspecific T-wave changes. Chest x-ray film personally reviewed by me-unremarkable 2-D echocardiogram: EF 60-65% Assessment and plan: -Patient presented episode of dizzy lightheaded followed by passing out for about 5 minutes. She looked pale. Perspiring. No prior history of seizure. No head injury. No recreational drugs. Differential includes arrhythmia for which patient will need an event monitor. Also rule out seizure. Cardiology consulted Neurology. EEG. -I ordered a d-dimer that came back 0.27. Patient denies any calf swelling. Has currently no shortness of breath. Breathing comfortable. Care was discussed with the patient and the . Questions answered. Past Medical History Past Medical History: No Reported History Additional Past Medical History / Comment(s): PAST HX ischemic colitis History of Any Multi-Drug Resistant Organisms: None Reported Past Surgical History: Ablation, Tubal Ligation Additional Past Surgical History / Comment(s): COLONOSCOPY Past Anesthesia/Blood Transfusion Reactions: No Reported Reaction Additional Past Anesthesia/Blood Transfusion Reaction / Comment(s): no hx blood transfusion Past Psychological History: No Psychological Hx Reported Smoking Status: Never smoker Past Alcohol Use History: Occasional Past Drug Use History: None Reported - Past Family History Mother Family Medical History: Cancer Additional Family Medical History / Comment(s): breast Medications and Allergies Home Medications Medication Instructions Recorded Confirmed Type No Known Home Medications 09/17/21 07/14/23 History Allergies Allergy/AdvReac Type Severity Reaction Status Date / Time amoxicillin AdvReac Rash/Hives Verified 07/14/23 06:38 Physical Exam Vitals: Vital Signs Temp Pulse Pulse Pulse Pulse Resp BP 07/14/23 11:00 69 18 100/63 07/14/23 10:44 71 18 07/14/23 08:23 66 18 110/76 07/14/23 06:20 85 14 92/61 07/14/23 04:59 77 16 100/65 07/14/23 01:55 77 18 118/80 07/14/23 01:25 70 87 69 07/14/23 00:49 98.2 F 78 18 122/85 BP BP BP Pulse Ox 07/14/23 11:00 94 L 07/14/23 10:44 95 07/14/23 08:23 96 07/14/23 06:20 99 07/14/23 04:59 98 07/14/23 01:55 97 07/14/23 01:25 108/90 118/80 114/76 07/14/23 00:49 100 Intake and Output 07/13/23 07/14/23 07/14/23 22:59 06:59 14:59 Other: Weight 68.039 kg Results CBC & Chem 7: 07/14/23 01:22 07/14/23 01:17 Labs: Abnormal Lab Results - Last 24 Hours (Table) 07/14/23 07/14/23 Range/Units 01:17 01:17 APTT 20.2 L (22.0-30.0) sec Carbon Dioxide 21 L (22-30) mmol/L Glucose 111 H (74-99) mg/dL
--- NOTE | 2023-07-14 17:49 | EEG ---
ELECTROENCEPHALOGRAM REPORT PREAMBLE: This is a 48-year-old female with recurrent syncope. EEG FINDINGS: This is a 21-channel digital EEG recorded with video component, utilizing 10/[employer] System with referential and bipolar montages. The background was mostly suppressed. Only during eye opening and closing, it was noticed. With eye closure, there was a presence of 10 to 11 Hz low-amplitude alpha rhythm seen in the posterior head region, that is reactive to eye opening and closing. Photic driving response was seen with some flash frequencies. Some stage II sleep was seen during later part of the study with presence of sleep spindles. No focal or generalized epileptiform activity was seen. EKG channel showed no obvious arrhythmia. IMPRESSION: This is essentially a normal EEG mainly during drowsiness and stage II sleep. Brief period of wakefulness showed normal background. No epileptiform activity was seen. MMNATASHA / CLARYN: [id number] / MTDMar
--- NOTE | 2023-07-14 19:42 | P.DS ---
Providers Date of admission: 07/14/23 04:19 Expected date of discharge: 07/14/23 Attending physician: Kareem Styles Consults: 07/14/23 04:19 Consult Physician Urgent Consulting Provider: [facility] Consult Reason/Comments: syncope Do you want consulting provider notified?: Yes 07/14/23 08:11 Consult Physician Routine Consulting Provider: Juan Arriola Consult Reason/Comments: syncope, vision changes Do you want consulting provider notified?: Yes Primary care physician: Saira De Santiago [facility] Course: Chief Complaint: Past out This is a pleasant 48-year-old patient who follows with Dr.S. De Santiago. Patient normally in good health. Yesterday patient and her had gone out for dinner. Glaucoma around 8:00. At about 9 PM she was watching the football game and on the couch. Went to sleep. Woke up around 11:30 PM and went to the restroom. She felt fuzzy in the head perspiring and then patient passed out. had a fall came to the bathroom. She was on the floor. She was pale and perspiring heavily. She was slowly wake up but Dozing off for last about 5 minutes. Also some shortness of breath. No tongue biting. He landed according the EMS. EMS recorded a blood pressure 1 27 x 56, a pulse of 82, respiration of 20 and a pulse ox of 96%. EKG showed sinus rhythm. Patient does not remember that episode except when the EMS came. Patient denies any prior head injury. No prior history of seizure activity. Denies any use a mask excessive alcohol intake or any recreational drugs. About a week ago patient was doing yoga and she was bending forward with a body ER should the ear she got up she felt very dizzy lightheaded. Had to hold onto something. Otherwise patient rather active. Patient's at the bedside to help with a history in the ER. Patient had event monitor placed. Dr. Vann informed me that the computed tomography scan EEG was unremarkable. Patient follow-up with Dr. ANITRA price. Past medical history to include: Ischemic colitis. Social history: smoked for about 9 years stopped at age of 23.-half a pack a day. Alcohol socially. Lives with her . Physical examination: VITAL SIGNS: 98.2, 78, 18, 122/85, 100% room air. No orthostatic GENERAL: BMI 28.3, sitting up comfortable. EYES: Pupils equal. Conjunctiva normal. HEENT: External appearance of nose and ears normal, oral cavity grossly normal. NECK: JVD not raised; masses not palpable. HEART: First and second heart sounds are normal; no edema. LUNGS: Respiratory rate normal; clear to auscultation. ABDOMEN: Soft, nontender, liver spleen not palpable, no masses palpable. PSYCH: Alert and oriented x3; mood and affect normal. MUSCULOSKELETAL:No Clubbing/cyanosis;muscles-grossly intact NEUROLOGICAL: Cranial nerves grossly intact; no facial asymmetry, power and sensation grossly intact. LYMPHATICS: No lymph nodes palpable in the axilla and neck INVESTIGATIONS, reviewed in the clinical context: EEG and computed tomography scan of brain reported by neurology to be negative July 14: White count 6.8 hemoglobin 12.8 platelets 207 sodium 142 potassium 3.6 creatinine 0.77 Troponin I less than 0.012 D-dimer 0.27 EKG tracing personally reviewed by me-normal sinus rhythm. Nonspecific T-wave changes. Chest x-ray film personally reviewed by me-unremarkable 2-D echocardiogram: EF 60-65% Assessment and plan: -Patient presented episode of dizzy lightheaded followed by passing out for about 5 minutes. She looked pale. Perspiring. No prior history of seizure. No head injury. No recreational drugs. Differential includes arrhythmia for which patient will need an event monitor. EEG negative for seizure activity. Computed tomography scan brain reported to be negative per cardiology. Patient follow-up with Dr. ANITRA Gutierrez with the event monitor. -I ordered a d-dimer that came back 0.27. Patient denies any calf swelling. Has currently no shortness of breath. Breathing comfortable. Disposition: Home Plan - Discharge Summary New Discharge Prescriptions: No Action No Known Home Medications Discharge Medication List No Known Home Medications 09/17/21 [History] Follow up Appointment(s)/Referral(s): Lisa Gutierrez MD [STAFF PHYSICIAN] - 10 Days Saira De Santiago MD [Primary Care Provider] - 1-2 days Patient Instructions/Handouts: Vertigo (DC), Syncope (DC) Activity/Diet/Wound Care/Special Instructions: Event monitor Discharge Disposition: HOME SELF-CARE
--- NOTE | 2023-07-14 22:59 | CT ---
EXAMINATION TYPE: CT brain wo con DATE OF EXAM: 07/14/2023 COMPARISON: None HISTORY: 48-year-old female Multiple instances of syncope TECHNIQUE: Examination was done in axial plane without intravenous contrast. Coronal and sagittal r econstructions performed. CT DLP: 1153.4 mGycm Automated exposure control for dose reduction was used. FINDINGS: There is no evidence of acute intracranial hemorrhage, acute ischemic changes, mass, mass-effect, or extra-axial fluid collection. There is no effacement of cerebral sulci or basal subarachnoid cister ns. There is no hydrocephalus. There is no midline shift. Sal-white matter distinction is preserv ed. Paranasal sinuses and mastoid air cells are pneumatized. Orbits and globes are intact. IMPRESSION: No acute intracranial abnormality seen.
--- NOTE | 2023-07-17 16:39 | P.CNNES ---
History of Present Illness Consult date: 07/14/23 Requesting physician: Ivette Dominguez Reason for Consult: Syncope, vision change History of Present Illness: Patient is a 48-year-old female came to the hospital by ambulance continuity editor today at 12:46 AM for a syncopal spell. As per EMS flow sheet when they arrived, patient was sitting at the steps, complaining of nausea and dizziness. Patient states she passed out on the toilet while urinating. She hit her back on the right scapula and right flank on the cabinet. Patient woke up to asking what was going on. Patient stated that she felt fine walking to the bathroom but when she sat down, that's when she felt like she was going to pass out. Cardiac monitoring showed sinus rhythm. Patient's pupils were equal, reactive. Patient denied any recent headaches or being sick. No shortness of breath or chest pain. Patient denied any history of cardiac issues or recent trauma. Patient's vitals on the scene was blood pressure 139/109, pulse rate 67, respiration 20, saturation 100%. Blood test shows normal CBC, PT/PTT, normal CMP, troponin. EKG showed sinus rhythm, chest x-ray was normal. Patient informed me about exactly similar event as mentioned above. She was feeling perfectly fine prior to going to the bathroom. Patient states that she fell asleep at 11 PM in the couch. And then she got up and went to the bathroom for passing urine, when she had a transient episode of lightheadedness, fuzzy feeling for 30 seconds. She wanted to stand up and then passed out on the floor, and landed between the toilet and the wall, do but does not believe that she hit her head. She states she was out for no more than 30 seconds to a minute. When she came to, her was speaking to her trying to turn around. She was not shortly back to normal for another 5 minutes, not engaging completely with the conversation. She was sweating a lot. Patient denies any tongue bite. She denies any recent sickness. Patient states that she did feel slightly dizzy for about 2 hours Patient states that she passed out last week as well, 6 AM in the morning she was doing yoga session. She went into an inverted V position and as soon as she got up, she said her vision went black, couldn't hear, took a step to the chair and went on her knee. She was a little dizzy for couple hours after that. She did not seek medical attention for that. Patient denies any tobacco or alcohol use. Denies any marijuana use. Denies hypertension or diabetes. Patient denies being dehydrated and was not feeling hungry. Review of Systems Constitutional: Denies chills, Denies fever Eyes: denies blurred vision, denies diplopia, denies pain Ears: deny: decreased hearing, ear discharge Ears, nose, mouth and throat: Reports headache, Denies sore throat Cardiovascular: Denies chest pain, Denies shortness of breath Respiratory: Denies cough, Denies excessive sputum Gastrointestinal: Denies abdominal pain, Denies diarrhea, Denies nausea, Denies vomiting Genitourinary: Denies mixed incontinence, Denies urgency Musculoskeletal: Denies low back pain, Denies myalgias, Denies neck pain Integumentary: Denies pruritus, Denies rash Neurological: Reports as per HPI Psychiatric: Denies anxiety, Denies depression Endocrine: Denies weight change Past Medical History Past Medical History: No Reported History Additional Past Medical History / Comment(s): PAST HX ischemic colitis History of Any Multi-Drug Resistant Organisms: None Reported Past Surgical History: Ablation, Tubal Ligation Additional Past Surgical History / Comment(s): COLONOSCOPY Past Anesthesia/Blood Transfusion Reactions: No Reported Reaction Additional Past Anesthesia/Blood Transfusion Reaction / Comment(s): no hx blood transfusion Past Psychological History: No Psychological Hx Reported Smoking Status: Never smoker Past Alcohol Use History: Occasional Past Drug Use History: None Reported - Past Family History Mother Family Medical History: Cancer Additional Family Medical History / Comment(s): breast Medications and Allergies Home Medications Medication Instructions Recorded Confirmed Type No Known Home Medications 09/17/21 07/14/23 History Allergies Allergy/AdvReac Type Severity Reaction Status Date / Time amoxicillin AdvReac Rash/Hives Verified 07/14/23 06:38 Physical Examination - Vital Signs Vital Signs: Vital Signs Temp Pulse Pulse Pulse Pulse Resp BP 07/14/23 11:00 69 18 100/63 07/14/23 10:44 71 18 07/14/23 08:23 66 18 110/76 07/14/23 06:20 85 14 92/61 07/14/23 04:59 77 16 100/65 07/14/23 01:55 77 18 118/80 07/14/23 01:25 70 87 69 07/14/23 00:49 98.2 F 78 18 122/85 BP BP BP Pulse Ox 07/14/23 11:00 94 L 07/14/23 10:44 95 07/14/23 08:23 96 07/14/23 06:20 99 07/14/23 04:59 98 07/14/23 01:55 97 07/14/23 01:25 108/90 118/80 114/76 07/14/23 00:49 100 Intake and Output 07/13/23 07/14/23 07/14/23 22:59 06:59 14:59 Other: Weight 68.039 kg Patient is a middle aged female, very pleasant, in no acute distress. Patient is alert awake oriented to time place and person. Speech and language functions are normal. Patient can name and repeat very well. No aphasia or dysarthria. Attention, concentration and fund of knowledge is adequate. On cranial nerve examination, pupils are equal, round and reacting to light, visual camacho are full on confrontation, with no neglect on double simultaneous stimulation. Extraocular muscles are intact with no nystagmus. Face is symmetric, tongue protrudes to the midline. Palatal elevation and sensation normal, hearing and shoulder shrug normal, facial sensation normal. On muscle strength testing, there is no pronator drift and the strength is normal in arms and legs distally and proximally. Deep tendon reflexes are symmetric 1 all over and plantars downgoing. Sensory to touch is equal with no neglect on double simultaneous stimulation. Cerebellar function showed no ataxia for [id number] testing. No dysdiadochokinesia. No ataxia for [id number] testing on either side. Tone a nd bulk of muscles normal. Gait deferred.. On general examination, there is no carotid bruit or murmur, S1-S2 audible. Chest is clear on consultation. Abdomen is soft nontender. No organomegaly, bowel sounds present. Peripheral pulses are present. No peripheral edema. Results - Laboratory Findings CBC and BMP: 07/14/23 01:22 07/14/23 01:17 Abnormal Lab Findings: Abnormal Labs 07/14/23 07/14/23 01:17 01:17 APTT 20.2 L Carbon Dioxide 21 L Glucose 111 H Assessment and Plan Assessment: * Syncopal spell, likely vasovagal, rule out arrhythmia. Seizure appears unlikely, as there was no convulsive activity, no tongue bite and no s ignificant postictal state. * History of a syncopal spell 2 weeks ago as well while doing yoga. Plan: * EEG was performed, which was essentially a normal EEG mainly during drowsiness and stage II sleep. Brief period of wakefulness showed normal background. No epileptiform activity was seen. * 2-D echo revealed normal left-ventricular size and systolic function. No sig nificant abnormality on the Doppler. Left atrial size is normal. * CT head was performed which was normal with no acute intracranial process. * Patient is seen by cardiology, recommending event monitor placement to rule out arrhythmia. Agree with it. * Neurologically, no other workup indicated. Neurologically clear for discharge. * Thank you for the consult.
== END 2023-07-14 18:13 | disposition home or self-care (01) ==
LOC: EC 00:46 → 6NMEDSUR 04:19
PROVIDERS: ADMIT Hospitalist; ATTEND Hospitalist
DX: R55 Syncope and collapse (principal); R42 Dizziness and giddiness; Z87.891 Personal history of nicotine dependence; Z88.0 Allergy status to penicillin
CPT/HCPCS: 96361; 96372; 96374; 99285; 36415; 95816; 93005; 93306; 93270; 85379; 80053; 83735; 84484; 85025; 85610; 85730; 71046; 70450; G0378; J2405; J1650

== ENCOUNTER → 2024-07-09 | Outpatient (CLI) | payer BC ==
--- NOTE | 2024-07-13 22:39 | MM ---
Reason for Exam: Screening (asymptomatic). Last mammogram was performed 2 year(s) and 0 month(s) ago. Patient History: Menarche at age 13. First Full-Term at age 24. Perimenopausal. Patient has history of breast feeding. Mother had breast cancer, age 51. Risk Values: Lauar 5 year model risk: 1.7%. NCI Lifetime model risk: 15.5%. Prior Study Comparison: 07/26/2019 Bilateral Screening Mammogram, [facility]. 08/08/2019 Left Diagnostic Mammogram, [facility]. 07/25/2022 Bilateral MG 3D screening mammo w/cad, [facility]. Tissue Density: There are scattered areas of fibroglandular density. Findings: Analyzed By CAD. The pattern is symmetrical. No significant interval change No suspicious groups of microcalcifications, spiculated or lobular masses, architectural distortion or other secondary signs of malignancy are mammographically apparent. Overall Assessment: Benign, BI-RAD 2 Management: Screening Mammogram of both breasts in 1 year. A negative mammogram report should not preclude additional follow up of suspicious palpable abnormalities. Patient should continue monthly self breast exam. A clinical breast exam by your physician is recommended on an annual basis and results should be correlated with mammographic findings. Note on Laura scores and lifetime risk: 1. A Laura score greater than 3% is considered moderate risk. If this is the case, consider specialist referral to assess eligibility for a risk reducing agent. 2. If overall lifetime risk for the development of breast cancer is 20% or higher, the patient may qualify for future screening with alternating mammogram and breast MRI. [facility], , 07/13/2024 10:36 PM. Electronically signed and approved by: Zack Torres D.O. Radiologis
== END | disposition home or self-care (01) ==
LOC: RADMAMWWP 07:24
PROVIDERS: ATTEND Family Medicine
DX: Z12.31 Encounter for screening mammogram for malignant neoplasm of breast (principal); R92.323 Mammographic fibroglandular density, bilateral breasts; Z80.3 Family history of malignant neoplasm of breast
CPT/HCPCS: 77063; 77067